=== PATIENT | male | born 1990 | race Caucasian/White ===

== ENCOUNTER 2017-06-20 15:08 | Emergency (ER) | payer OTHER ==
[~2017-06-20] VITALS: Ht 180.3 cm; Wt 97.7 kg
[2017-06-20 15:08] VITALS: BP 154/72
[2017-06-20] MEDS ORDERED: AUGM875T28 PO (16:02)
== END 2017-06-20 16:14 | disposition home or self-care (01) ==
LOC: M ED 15:08
DX: S51.832A Puncture wound without foreign body of left forearm, initial encounter (principal); S31.159A Open bite of abdominal wall, unspecified quadrant without penetration into peritoneal cavity, initial encounter; W54.0XXA Bitten by dog, initial encounter; Y92.410 Unspecified street and highway as the place of occurrence of the external cause; Y99.9 Unspecified external cause status; Y93.9 Activity, unspecified; Z88.1 Allergy status to other antibiotic agents